=== PATIENT | male | born 1940 | race Caucasian/White ===

== ENCOUNTER → 2020-07-10 | Outpatient (CLI) | payer MEDICARE | END | disposition home or self-care (01) | LOC: LAB 15:07 | PROVIDERS: ATTEND Internal Medicine | DX: N39.0 Urinary tract infection, site not specified (principal) ==

== ENCOUNTER → 2020-07-23 | Outpatient (CLI) | payer MEDICARE | END | disposition home or self-care (01) | LOC: US 14:09 | PROVIDERS: ATTEND Internal Medicine | DX: N40.0 Benign prostatic hyperplasia without lower urinary tract symptoms (principal); R79.89 Other specified abnormal findings of blood chemistry ==

== ENCOUNTER → 2020-08-12 | Outpatient (CLI) | payer MEDICARE | END | disposition home or self-care (01) | LOC: CARD 14:44 | PROVIDERS: ATTEND Internal Medicine | DX: I08.0 Rheumatic disorders of both mitral and aortic valves (principal) ==

== ENCOUNTER → 2020-08-24 | Outpatient (CLI) | payer MEDICARE | END | disposition home or self-care (01) | LOC: LAB 10:25 | PROVIDERS: ATTEND Internal Medicine | DX: Z12.5 Encounter for screening for malignant neoplasm of prostate (principal); N40.0 Benign prostatic hyperplasia without lower urinary tract symptoms ==

== ENCOUNTER 2020-09-20 16:33 | Inpatient (IN) | payer MEDICARE ==
[~2020-09-20] VITALS: Ht 175.3 cm; Wt 78.3 kg
[2020-09-20 11:45] VITALS: BP 129/62
[2020-09-20 16:42] VITALS: BP 148/74
[2020-09-20 16:44] VITALS: BP 146/78
[2020-09-20 17:25] LABS: HEMATOCRIT 47.2 % (42.0-52.0); MEAN CELL VOLUME 91.5 fl (80.0-94.0); MEAN CORPUSCULAR HGB 30.4 pg (27.0-31.0); MEAN CORPUSCULAR HGB CONC 33.3 g/dl (33.0-37.0); MEAN PLATELET VOLUME 10.2 fl (9.6-12.3); PLATELET COUNT AUTOMATED 354 10*3/uL (130-400); RED BLOOD COUNT 5.16 10*6/uL (4.50-5.90); RED CELL DISTRI WIDTH 12.9 % (0-14.5); WHITE BLOOD COUNT 25.5 10*3/uL (4.8-10.8)
[2020-09-20 17:44] LABS: ALBUMIN 3.3 gm/dl (3.1-4.5); ALKALINE PHOSPHATASE 59 U/L (45-117); BUN 20 mg/dl (7-24); CHLORIDE 102 mmol/L (98-107); CREATININE 1.09 mg/dL (0.70-1.30); POTASSIUM 4.4 mmol/L (3.5-5.1); SGOT/AST 8 IU/L (3-35); SGPT/ALT 25 U/L (12-78); SODIUM 137 mmol/L (136-145); TOTAL PROTEIN 7.2 gm/dL (6.4-8.2)
[2020-09-20 17:46] LABS: TROPONIN I < 0.015 ng/ml (<0.045)
[2020-09-20 18:00] LABS: PLATELET SUFFICIENCY NORMAL (NORMAL); SCHISTOCYTES FEW; TOTAL CELLS COUNTED 100 #CELLS
[2020-09-20] MEDS ORDERED: TAMSULOSIN HCL0.4 MG PO (22:18)
[2020-09-20] MEDS ORDERED: VERAPAMIL HCL240 M1 PO (22:18)
[2020-09-20] MEDS ORDERED: ATORVASTATIN CA20 M1 PO (22:19)
[2020-09-20] MEDS ORDERED: LISINOPRIL20 MG PO (22:19)
[2020-09-20] MEDS ORDERED: LOVASTATIN20 MG PO (22:20)
[2020-09-20] MEDS ORDERED: CLARITIN10 MG PO (22:21)
[2020-09-20 23:33] VITALS: BP 157/62
[2020-09-21 07:58] VITALS: BP 116/75
[2020-09-21 12:19] VITALS: BP 139/90
[2020-09-21 16:11] VITALS: BP 109/71
[2020-09-21 20:00] VITALS: BP 132/67
[2020-09-22] VITALS: BP 124/67
[2020-09-22 06:24] LABS: HEMATOCRIT 40.8 % (42.0-52.0); MEAN CELL VOLUME 91.9 fl (80.0-94.0); MEAN CORPUSCULAR HGB 30.6 pg (27.0-31.0); MEAN CORPUSCULAR HGB CONC 33.3 g/dl (33.0-37.0); MEAN PLATELET VOLUME 10.7 fl (9.6-12.3); PLATELET COUNT AUTOMATED 292 10*3/uL (130-400); RED BLOOD COUNT 4.44 10*6/uL (4.50-5.90); RED CELL DISTRI WIDTH 13.5 % (0-14.5); WHITE BLOOD COUNT 24.9 10*3/uL (4.8-10.8)
[2020-09-22 06:28] LABS: BUN 28 mg/dl (7-24); CHLORIDE 107 mmol/L (98-107); CREATININE 1.01 mg/dL (0.70-1.30); SODIUM 137 mmol/L (136-145)
[2020-09-22 06:51] LABS: TOTAL CELLS COUNTED 100 #CELLS
[2020-09-22 06:52] LABS: BURR CELLS MODERATE; PLATELET SUFFICIENCY NORMAL (NORMAL)
[2020-09-22 08:00] VITALS: BP 125/69
[2020-09-22 12:00] VITALS: BP 122/64
[2020-09-22 16:00] VITALS: BP 122/64; BP 131/68
[2020-09-22 20:00] VITALS: BP 150/66
[2020-09-23] VITALS: BP 132/70
[2020-09-23 06:59] LABS: HEMATOCRIT 43.3 % (42.0-52.0); MEAN CELL VOLUME 92.7 fl (80.0-94.0); MEAN CORPUSCULAR HGB 30.4 pg (27.0-31.0); MEAN CORPUSCULAR HGB CONC 32.8 g/dl (33.0-37.0); MEAN PLATELET VOLUME 10.7 fl (9.6-12.3); PLATELET COUNT AUTOMATED 332 10*3/uL (130-400); RED BLOOD COUNT 4.67 10*6/uL (4.50-5.90); RED CELL DISTRI WIDTH 13.8 % (0-14.5); WHITE BLOOD COUNT 22.7 10*3/uL (4.8-10.8)
[2020-09-23 07:27] LABS: BUN 30 mg/dl (7-24); CHLORIDE 107 mmol/L (98-107); CREATININE 0.98 mg/dL (0.70-1.30); POTASSIUM 4.3 mmol/L (3.5-5.1); SODIUM 137 mmol/L (136-145)
[2020-09-23 07:52] LABS: PLATELET SUFFICIENCY NORMAL (NORMAL); TOTAL CELLS COUNTED 100 #CELLS
[2020-09-23 08:00] VITALS: BP 164/76
[2020-09-23 12:00] VITALS: BP 147/62
[2020-09-23 12:09] VITALS: BP 164/76
[2020-09-23 16:00] VITALS: BP 155/83
[2020-09-23 20:00] VITALS: BP 102/42
[2020-09-24] VITALS (7 sets, daily range): BP systolic 131–170; BP diastolic 63–92
[2020-09-24 06:18] LABS: BASO % 0.1 % (0.0-1.0); HEMATOCRIT 41.6 % (42.0-52.0); LYMPH # 1.5 10*3/uL (1.3-4.4); LYMPH % 9.8 % (27.0-41.0); MEAN CELL VOLUME 92.9 fl (80.0-94.0); MEAN CORPUSCULAR HGB 30.6 pg (27.0-31.0); MEAN CORPUSCULAR HGB CONC 32.9 g/dl (33.0-37.0); MEAN PLATELET VOLUME 10.6 fl (9.6-12.3); MONO % 6.8 % (3.0-9.0); NEUT # 12.7 10*3/uL (2.3-7.9); NEUT % 82.7 % (47.0-73.0); PLATELET COUNT AUTOMATED 310 10*3/uL (130-400); RED BLOOD COUNT 4.48 10*6/uL (4.50-5.90); RED CELL DISTRI WIDTH 13.7 % (0-14.5); WHITE BLOOD COUNT 15.3 10*3/uL (4.8-10.8)
[2020-09-24] MEDS ORDERED: PREDNISONE5 MG PO (07:00)
[2020-09-24] MEDS ORDERED: DOXYCYCLINE MO100 M1 PO (07:00)
== END 2020-09-24 20:50 | disposition home or self-care (01) | DRG 177 ==
LOC: ED 16:33 → EDHOLD 21:37 → 5E 21:37 → EDHOLD 21:37 → 5E 23:05
PROVIDERS: Internal Medicine; Internal Medicine Critical Care Medicine; ADMIT Internal Medicine; ATTEND Internal Medicine
PROC: BD1BYZZ Fluoroscopy of Mouth/Oropharynx using Other Contrast (ICD-10-PCS; 2020-09-21)
PROC: 0DB68ZX Excision of Stomach, Via Natural or Artificial Opening Endoscopic, Diagnostic (ICD-10-PCS; principal; 2020-09-24)
PROC: 0D758ZZ Dilation of Esophagus, Via Natural or Artificial Opening Endoscopic (ICD-10-PCS; 2020-09-24)
DX: J69.0 Pneumonitis due to inhalation of food and vomit (principal); J96.01 Acute respiratory failure with hypoxia; R65.10 Systemic inflammatory response syndrome (SIRS) of non-infectious origin without acute organ dysfunction; J44.1 Chronic obstructive pulmonary disease with (acute) exacerbation; J44.0 Chronic obstructive pulmonary disease with (acute) lower respiratory infection; I10 Essential (primary) hypertension; E78.5 Hyperlipidemia, unspecified; K22.2 Esophageal obstruction; E78.00 Pure hypercholesterolemia, unspecified; K26.9 Duodenal ulcer, unspecified as acute or chronic, without hemorrhage or perforation; Z53.29 Procedure and treatment not carried out because of patient's decision for other reasons; K25.9 Gastric ulcer, unspecified as acute or chronic, without hemorrhage or perforation; J38.7 Other diseases of larynx; K29.70 Gastritis, unspecified, without bleeding; K29.80 Duodenitis without bleeding; K44.9 Diaphragmatic hernia without obstruction or gangrene; N40.0 Benign prostatic hyperplasia without lower urinary tract symptoms; F41.9 Anxiety disorder, unspecified; Z87.891 Personal history of nicotine dependence; Z79.899 Other long term (current) drug therapy; Z88.0 Allergy status to penicillin

== ENCOUNTER 2021-09-14 22:22 | Emergency (ER) | payer MEDICARE ==
[~2021-09-14] VITALS: Ht 177.8 cm; Wt 68.5 kg
[~2021-09-14 22:22] MED LIST: ATORVASTATIN CA20 M1 PO; CLARITIN10 MG PO; DOXYCYCLINE MO100 M1 PO; LISINOPRIL20 MG PO; LOVASTATIN20 MG PO; PREDNISONE5 MG PO; TAMSULOSIN HCL0.4 MG PO; VERAPAMIL HCL240 M1 PO
[2021-09-14 22:34] VITALS: BP 153/89
== END 2021-09-14 23:39 | disposition home or self-care (01) ==
LOC: ED 22:22
DX: R04.0 Epistaxis (principal); Z79.899 Other long term (current) drug therapy; Z88.0 Allergy status to penicillin

== ENCOUNTER → 2022-02-09 | Outpatient (CLI) | payer MEDICARE ==
[2022-02-09 11:50] LABS: BASO # 0.1 10*3/uL (0.0-0.1); BASO % 0.8 % (0.0-1.0); EOS # 0.4 10*3/uL (0.0-0.4); EOS % 3.9 % (1.0-4.0); HEMATOCRIT 49.9 % (42.0-52.0); LYMPH # 2.3 10*3/uL (1.3-4.4); LYMPH % 25.8 % (27.0-41.0); MEAN CELL VOLUME 92.9 fl (80.0-94.0); MEAN CORPUSCULAR HGB 30.9 pg (27.0-31.0); MEAN CORPUSCULAR HGB CONC 33.3 g/dl (33.0-37.0); MEAN PLATELET VOLUME 10.6 fl (9.6-12.3); MONO # 0.7 10*3/uL (0.1-1.0); MONO % 7.3 % (3.0-9.0); NEUT # 5.5 10*3/uL (2.3-7.9); NEUT % 61.9 % (47.0-73.0); PLATELET COUNT AUTOMATED 237 10*3/uL (130-400); RED BLOOD COUNT 5.37 10*6/uL (4.50-5.90); RED CELL DISTRI WIDTH 13.2 % (0-14.5); WHITE BLOOD COUNT 8.9 10*3/uL (4.8-10.8)
[2022-02-09 12:22] LABS: CHLORIDE 106 mmol/L (98-107); POTASSIUM 4.7 mmol/L (3.5-5.1); SODIUM 137 mmol/L (136-145)
[2022-02-09 12:34] LABS: ALKALINE PHOSPHATASE 64 U/L (45-117); BUN 20 mg/dl (7-24); CHOLESTEROL 266 mg/dL (<200); CREATININE 1.24 mg/dL (0.70-1.30); FREE T4 1.02 ng/dl (0.76-1.46); LDL CHOLESTEROL 184 mg/dL (9-159); SGOT/AST 10 IU/L (3-35); SGPT/ALT 17 U/L (12-78); TOTAL PROTEIN 7.6 gm/dL (6.4-8.2); TRIGLYCERIDES 173 mg/dl (<150)
[2022-02-09 13:12] LABS: VITAMIN D, 25-HYDROXY 70.2 ng/mL (30-100)
== END | disposition home or self-care (01) ==
LOC: LAB 11:14
PROVIDERS: ATTEND Internal Medicine
DX: J44.1 Chronic obstructive pulmonary disease with (acute) exacerbation (principal); J69.0 Pneumonitis due to inhalation of food and vomit; I10 Essential (primary) hypertension; E78.2 Mixed hyperlipidemia; E03.9 Hypothyroidism, unspecified; R53.81 Other malaise; R79.89 Other specified abnormal findings of blood chemistry; E55.9 Vitamin D deficiency, unspecified; D51.9 Vitamin B12 deficiency anemia, unspecified; D52.9 Folate deficiency anemia, unspecified; D52.0 Dietary folate deficiency anemia; Z13.0 Encounter for screening for diseases of the blood and blood-forming organs and certain disorders involving the immune mechanism; Z13.1 Encounter for screening for diabetes mellitus; Z13.21 Encounter for screening for nutritional disorder; Z13.220 Encounter for screening for lipoid disorders; Z13.228 Encounter for screening for other metabolic disorders; Z13.6 Encounter for screening for cardiovascular disorders; Z13.89 Encounter for screening for other disorder

== ENCOUNTER → 2023-02-21 | Outpatient (CLI) | payer MEDICARE | LOC: RAD 13:28 | PROVIDERS: ATTEND Internal Medicine | DX: J98.4 Other disorders of lung (principal) ==

== ENCOUNTER → 2023-08-09 | Outpatient (CLI) | payer MEDICARE ==
[2023-08-09 10:33] LABS: BASO # 0.1 10*3/uL (0.0-0.1); BASO % 0.8 % (0.0-1.0); EOS # 0.4 10*3/uL (0.0-0.4); EOS % 4.2 % (1.0-4.0); HEMATOCRIT 48.5 % (42.0-52.0); LYMPH # 2.3 10*3/uL (1.3-4.4); LYMPH % 22.4 % (27.0-41.0); MEAN CELL VOLUME 95.7 fl (80.0-94.0); MEAN CORPUSCULAR HGB 31.6 pg (27.0-31.0); MEAN PLATELET VOLUME 10.2 fl (9.6-12.3); MONO % 9.9 % (3.0-9.0); NEUT # 6.4 10*3/uL (2.3-7.9); NEUT % 62.4 % (47.0-73.0); PLATELET COUNT AUTOMATED 252 10*3/uL (130-400); RED BLOOD COUNT 5.07 10*6/uL (4.50-5.90); RED CELL DISTRI WIDTH 14.3 % (0-14.5); WHITE BLOOD COUNT 10.3 10*3/uL (4.8-10.8)
[2023-08-09 11:37] LABS: ALKALINE PHOSPHATASE 51 U/L (46-116); BUN 16 mg/dl (9-23); CHLORIDE 106 mmol/L (98-107); CHOLESTEROL 183 mg/dL (<200); FREE T4 1.06 ng/dl (0.89-1.76); LDL CHOLESTEROL 101 mg/dL (9-159); POTASSIUM 4.3 mmol/L (3.4-5.1); SGPT/ALT 13 U/L (5-49); TOTAL PROTEIN 7.5 gm/dL (6.0-8.0); TRIGLYCERIDES 123 mg/dl (<150)
[2023-08-09 11:38] LABS: VITAMIN D, 25-HYDROXY 78.7 ng/mL (30-100)
== END | disposition home or self-care (01) ==
LOC: LAB 10:14
PROVIDERS: ATTEND Internal Medicine
DX: Z12.5 Encounter for screening for malignant neoplasm of prostate (principal); Z13.0 Encounter for screening for diseases of the blood and blood-forming organs and certain disorders involving the immune mechanism; Z13.1 Encounter for screening for diabetes mellitus; Z13.21 Encounter for screening for nutritional disorder; Z13.220 Encounter for screening for lipoid disorders; Z13.228 Encounter for screening for other metabolic disorders; Z13.29 Encounter for screening for other suspected endocrine disorder; Z23 Encounter for immunization; Z13.6 Encounter for screening for cardiovascular disorders; Z13.9 Encounter for screening, unspecified; I12.9 Hypertensive chronic kidney disease with stage 1 through stage 4 chronic kidney disease, or unspecified chronic kidney disease; N18.31 Chronic kidney disease, stage 3a

== ENCOUNTER → 2024-06-27 | Outpatient (CLI) | payer MEDICARE | END | disposition home or self-care (01) | LOC: RAD 13:32 | PROVIDERS: ATTEND Internal Medicine | DX: J44.9 Chronic obstructive pulmonary disease, unspecified (principal); J12.9 Viral pneumonia, unspecified ==

== ENCOUNTER 2024-08-11 16:27 | Inpatient (IN) | payer MEDICARE ==
[~2024-08-11] VITALS: Ht 175.2 cm; Wt 62.3 kg
[~2024-08-11 16:27] MED LIST changes: +LIPITOR20 MG PO; +RIVASTIGMINE T1.5 M1 PO
[2024-08-11 16:32] VITALS: BP 104/54
[2024-08-11 16:46] LABS: BASO % 0.3 % (0.0-1.0); EOS # 0.2 10*3/uL (0.0-0.4); EOS % 1.7 % (1.0-4.0); HEMATOCRIT 29.4 % (42.0-52.0); MEAN CELL VOLUME 96.1 fl (80.0-94.0); MEAN CORPUSCULAR HGB 30.4 pg (27.0-31.0); MEAN CORPUSCULAR HGB CONC 31.6 g/dl (33.0-37.0); MONO # 1.1 10*3/uL (0.1-1.0); MONO % 7.4 % (3.0-9.0); NEUT % 84.1 % (47.0-73.0); PLATELET COUNT AUTOMATED 273 10*3/uL (130-400); RED BLOOD COUNT 3.06 10*6/uL (4.50-5.90); RED CELL DISTRI WIDTH 15.8 % (0-14.5); WHITE BLOOD COUNT 14.3 10*3/uL (4.8-10.8)
[2024-08-11 17:09] LABS: POTASSIUM 4.7 mmol/L (3.4-5.1)
[2024-08-11] MEDS ORDERED: AVPAK AZITHROM250 M1 PO (18:08)
[2024-08-11] MEDS ORDERED: AZITHROMYCIN 250 MG TAB PO ONE (18:10)
[2024-08-11] MEDS ORDERED: Albuterol Sulf/Ipratropium 3 ML VIAL NEB SCH (18:55)
[2024-08-11] MEDS ORDERED: cefTRIAXone Sodium 1 GM,IV 1 EA in SYRINGE INFUSION 10 ML IV SCH (20:00)
[2024-08-11 20:13] VITALS: BP 102/54; BP 102/55
[2024-08-11] MEDS ORDERED: GUAIFENESIN 600 MG TAB ER PO SCH (22:00)
[2024-08-11] MEDS ORDERED: Rivastigmine Tartrate 1.5 MG CAP PO SCH (22:00)
[2024-08-12] VITALS: BP 120/63
[2024-08-12 08:00] VITALS: BP 113/58
[2024-08-12] MEDS ORDERED: PROTONIX40 MG PO (08:28)
[2024-08-12] MEDS ORDERED: ASPIRIN81 M1 PO (08:29)
[2024-08-12] MEDS ORDERED: AMIODARONE HYD200 MG PO (08:29)
[2024-08-12] MEDS ORDERED: MEGACE40 MG PO (08:30)
[2024-08-12] MEDS ORDERED: PLAVIX75 M1 PO (08:30)
[2024-08-12] MEDS ORDERED: HYDROCODONE-AC1 EAC1 PO (08:31)
[2024-08-12] MEDS ORDERED: SODIUM CHLORIDE 0.9% 1,000 ML IV SCH (08:45)
[2024-08-12] MEDS ORDERED: LISINOPRIL 20 MG TAB PO SCH (10:00)
[2024-08-12] MEDS ORDERED: Amiodarone Hydrochloride 200 MG TAB PO SCH (10:00)
[2024-08-12] MEDS ORDERED: ATORVASTATIN CALCIUM 20 MG TAB PO SCH (10:00)
[2024-08-12] MEDS ORDERED: Tamsulosin Hydrochloride 0.4 MG CAP PO SCH (10:00)
[2024-08-12] MEDS ORDERED: LISINOPRIL 5 MG TAB PO SCH (10:00)
[2024-08-12 10:57] VITALS: BP 110/49
[2024-08-12 11:57] VITALS: BP 136/64
[2024-08-12 16:00] VITALS: BP 122/56
[2024-08-12] MEDS ORDERED: AZITHROMYCIN 250 ML IV SCH (18:00)
[2024-08-12 20:00] VITALS: BP 116/59
[2024-08-12] MEDS ORDERED: Mirtazapine 15 MG TAB PO SCH (22:00)
[2024-08-13] VITALS: BP 149/62
[2024-08-13 06:09] LABS: BASO # 0.1 10*3/uL (0.0-0.1); BASO % 0.5 % (0.0-1.0); EOS # 0.8 10*3/uL (0.0-0.4); EOS % 7.4 % (1.0-4.0); HEMATOCRIT 27.1 % (42.0-52.0); MEAN CELL VOLUME 96.8 fl (80.0-94.0); MEAN CORPUSCULAR HGB 30.4 pg (27.0-31.0); MEAN CORPUSCULAR HGB CONC 31.4 g/dl (33.0-37.0); MEAN PLATELET VOLUME 10.2 fl (9.6-12.3); MONO # 0.8 10*3/uL (0.1-1.0); MONO % 7.8 % (3.0-9.0); NEUT # 6.8 10*3/uL (2.3-7.9); NEUT % 67.6 % (47.0-73.0); PLATELET COUNT AUTOMATED 282 10*3/uL (130-400); RED CELL DISTRI WIDTH 15.9 % (0-14.5); WHITE BLOOD COUNT 10.1 10*3/uL (4.8-10.8)
[2024-08-13 06:47] LABS: POTASSIUM 4.8 mmol/L (3.4-5.1); TOTAL PROTEIN 5.9 gm/dL (6.0-8.0)
[2024-08-13 08:00] VITALS: BP 128/60
[2024-08-13] MEDS ORDERED: busPIRone Hydrochloride 5 MG TAB PO SCH (10:00)
[2024-08-13] MEDS ORDERED: ASPIRIN ENTERIC COATED 81 MG TAB PO SCH (10:40)
[2024-08-13] MEDS ORDERED: Clopidogrel Hydrogen Sulfate 75 MG TAB PO SCH (10:40)
[2024-08-13 12:00] VITALS: BP 138/68
[2024-08-13 16:00] VITALS: BP 112/46
[2024-08-13 17:07] LABS: MYCOPLASMA PNEUMONIAE IGG 1613 U/mL (0-99); MYCOPLASMA PNEUMONIAE IGM <770 U/mL (0-769)
[2024-08-13] MEDS ORDERED: MEGESTROL ACETATE 40 MG TAB PO SCH (18:00)
[2024-08-13 20:00] VITALS: BP 116/54
[2024-08-14] VITALS: BP 117/56
[2024-08-14] MEDS ORDERED: Pantoprazole Sodium 40 MG TAB PO SCH (06:00)
[2024-08-14 06:42] LABS: POTASSIUM 4.6 mmol/L (3.4-5.1); TOTAL PROTEIN 5.8 gm/dL (6.0-8.0)
[2024-08-14 08:00] VITALS: BP 134/64
[2024-08-14] MEDS ORDERED: BUDESONIDE 0.25 MG NEB SCH (10:00)
[2024-08-14] MEDS ORDERED: Albuterol Sulfate 2.5 MG/3 ML VIAL NEB SCH (10:00)
[2024-08-14] MEDS ORDERED: IRON POLYSACCHARIDE PO SCH (10:00)
[2024-08-14 12:00] VITALS: BP 147/67
[2024-08-14 16:00] VITALS: BP 125/66
[2024-08-14 20:00] VITALS: BP 153/91
[2024-08-15] VITALS: BP 160/86
[2024-08-15 06:20] LABS: POTASSIUM 4.5 mmol/L (3.4-5.1); TOTAL PROTEIN 5.8 gm/dL (6.0-8.0)
[2024-08-15 08:00] VITALS: BP 120/60
[2024-08-15] MEDS ORDERED: FLUTICASONE PROPIONATE Nasal 16 Gm spray NAS SCH (10:00)
[2024-08-15 12:00] VITALS: BP 128/64
[2024-08-15] MEDS ORDERED: PERFLUTREN PROTEIN-A MICROSPHR 3 ML VIAL IV ONE (14:15)
[2024-08-15 16:00] VITALS: BP 107/88
[2024-08-15 20:00] VITALS: BP 145/71
[2024-08-16] VITALS: BP 162/88
[2024-08-16 05:41] LABS: POTASSIUM 4.4 mmol/L (3.4-5.1); TOTAL PROTEIN 5.9 gm/dL (6.0-8.0)
[2024-08-16 08:00] VITALS: BP 143/75
[2024-08-16 12:00] VITALS: BP 150/74
[2024-08-16 16:00] VITALS: BP 111/78
[2024-08-16 20:00] VITALS: BP 129/64
[2024-08-17] VITALS: BP 136/76
[2024-08-17 06:37] LABS: BASO % 0.3 % (0.0-1.0); EOS # 1.1 10*3/uL (0.0-0.4); HEMATOCRIT 29.1 % (42.0-52.0); MEAN CELL VOLUME 94.8 fl (80.0-94.0); MEAN CORPUSCULAR HGB 30.3 pg (27.0-31.0); MEAN PLATELET VOLUME 9.8 fl (9.6-12.3); MONO # 0.9 10*3/uL (0.1-1.0); MONO % 7.4 % (3.0-9.0); NEUT # 8.1 10*3/uL (2.3-7.9); NEUT % 67.4 % (47.0-73.0); PLATELET COUNT AUTOMATED 311 10*3/uL (130-400); RED BLOOD COUNT 3.07 10*6/uL (4.50-5.90); RED CELL DISTRI WIDTH 15.6 % (0-14.5)
[2024-08-17 07:01] LABS: POTASSIUM 4.6 mmol/L (3.4-5.1); TOTAL PROTEIN 6.1 gm/dL (6.0-8.0)
[2024-08-17 08:00] VITALS: BP 123/88
[2024-08-17] MEDS ORDERED: Albuterol Sulfate 2.5 MG/3 ML VIAL NEB PRN (10:50)
[2024-08-17 12:00] VITALS: BP 125/78
[2024-08-17] MEDS ORDERED: methylPREDNISolone sod succ 40 MG VIAL IV SCH (14:00)
[2024-08-17 16:00] VITALS: BP 125/94
[2024-08-17 20:00] VITALS: BP 131/70
[2024-08-18] VITALS: BP 160/72
[2024-08-18 06:39] LABS: MEAN CELL VOLUME 94.8 fl (80.0-94.0); MEAN CORPUSCULAR HGB 30.3 pg (27.0-31.0); MEAN CORPUSCULAR HGB CONC 31.9 g/dl (33.0-37.0); MEAN PLATELET VOLUME 10.2 fl (9.6-12.3); PLATELET COUNT AUTOMATED 368 10*3/uL (130-400); RED BLOOD COUNT 3.27 10*6/uL (4.50-5.90); RED CELL DISTRI WIDTH 15.4 % (0-14.5); WHITE BLOOD COUNT 5.3 10*3/uL (4.8-10.8)
[2024-08-18 06:42] LABS: MANUAL DIFF REFLEX YES
[2024-08-18 06:45] LABS: POTASSIUM 5.3 mmol/L (3.4-5.1); TOTAL PROTEIN 6.7 gm/dL (6.0-8.0)
[2024-08-18 07:04] LABS: BASOPHILS 1 % (0-1); BURR CELLS FEW; OVALOCYTES FEW; PLATELET SUFFICIENCY NORMAL (NORMAL); POLYCHROMASIA SLIGHT; TOTAL CELLS COUNTED 100 #CELLS
[2024-08-18 08:00] VITALS: BP 147/79
[2024-08-18 12:00] VITALS: BP 150/68
[2024-08-18 16:00] VITALS: BP 132/81
[2024-08-18 20:00] VITALS: BP 148/76
[2024-08-19] VITALS: BP 155/67
[2024-08-19 06:27] LABS: HEMATOCRIT 29.7 % (42.0-52.0); MEAN CELL VOLUME 94.3 fl (80.0-94.0); MEAN CORPUSCULAR HGB 30.2 pg (27.0-31.0); MEAN PLATELET VOLUME 10.1 fl (9.6-12.3); PLATELET COUNT AUTOMATED 363 10*3/uL (130-400); RED BLOOD COUNT 3.15 10*6/uL (4.50-5.90); RED CELL DISTRI WIDTH 15.3 % (0-14.5); WHITE BLOOD COUNT 10.9 10*3/uL (4.8-10.8)
[2024-08-19 06:40] LABS: MANUAL DIFF REFLEX YES; POTASSIUM 5.2 mmol/L (3.4-5.1); TOTAL PROTEIN 6.4 gm/dL (6.0-8.0)
[2024-08-19 07:38] LABS: TOTAL CELLS COUNTED 100 #CELLS
[2024-08-19 07:40] LABS: BURR CELLS FEW
[2024-08-19 07:43] LABS: PLATELET SUFFICIENCY NORMAL (NORMAL)
[2024-08-19 08:00] VITALS: BP 143/74
[2024-08-19] MEDS ORDERED: BUSPAR5 MG PO (08:24)
[2024-08-19] MEDS ORDERED: Ferrex 150150 MG PO (08:24)
[2024-08-19] MEDS ORDERED: MIRTAZAPINE15 M2 PO ×2 (08:24→08:25)
[2024-08-19] MEDS ORDERED: AMIODARONE HYD200 MG PO (08:24)
[2024-08-19] MEDS ORDERED: CEFUROXIME AXE250 MG PO (08:28)
[2024-08-19 12:00] VITALS: BP 138/75
== END 2024-08-19 14:00 | disposition home health service (06) | DRG 177 ==
LOC: ED 16:27 → EDHOLD 18:22 → 4E 18:22
PROVIDERS: Internal Medicine; Internal Medicine Critical Care Medicine; Physician Assistant Medical; ADMIT Internal Medicine; ATTEND Internal Medicine
DX: J15.61 Pneumonia due to Acinetobacter baumannii (principal); N17.0 Acute kidney failure with tubular necrosis; E44.0 Moderate protein-calorie malnutrition; E87.20 Acidosis, unspecified; I50.22 Chronic systolic (congestive) heart failure; J44.1 Chronic obstructive pulmonary disease with (acute) exacerbation; I13.0 Hypertensive heart and chronic kidney disease with heart failure and stage 1 through stage 4 chronic kidney disease, or unspecified chronic kidney disease; I42.9 Cardiomyopathy, unspecified; J44.0 Chronic obstructive pulmonary disease with (acute) lower respiratory infection; Z20.822 Contact with and (suspected) exposure to COVID-19; R26.2 Difficulty in walking, not elsewhere classified; J20.9 Acute bronchitis, unspecified; N40.1 Benign prostatic hyperplasia with lower urinary tract symptoms; G30.1 Alzheimer's disease with late onset; R04.0 Epistaxis; R33.8 Other retention of urine; E78.00 Pure hypercholesterolemia, unspecified; R54 Age-related physical debility; F02.80 Dementia in other diseases classified elsewhere, unspecified severity, without behavioral disturbance, psychotic disturbance, mood disturbance, and anxiety; I34.0 Nonrheumatic mitral (valve) insufficiency; F41.0 Panic disorder [episodic paroxysmal anxiety]; E87.6 Hypokalemia; K22.2 Esophageal obstruction; I25.10 Atherosclerotic heart disease of native coronary artery without angina pectoris; N18.32 Chronic kidney disease, stage 3b; R62.7 Adult failure to thrive; Z68.20 Body mass index [BMI] 20.0-20.9, adult; Z95.1 Presence of aortocoronary bypass graft; Z87.891 Personal history of nicotine dependence; Z88.0 Allergy status to penicillin